=== PATIENT | female | born 1955 | race American Indian/Alaskan Native ===

== ENCOUNTER 2016-05-28 06:38 | Day surgery (SDC) | payer BC ==
[2016-05-28] MEDS ORDERED: SUBLIMAZE IV NR (08:52)
[2016-05-28] MEDS ORDERED: NACL 0.9% 1000 ML 1,000 ML IV SCH (09:00)
[2016-05-28] MEDS ORDERED: PEPCID PO NR (09:00)
[2016-05-28] MEDS ORDERED: NEURONTIN PO NR (09:00)
[2016-05-28] MEDS ORDERED: VERSED IV NR (09:00)
--- NOTE | 2016-05-28 09:01 | Anesthesia Day of Surgery ---
Anesthesia Day of Surgery - Day of Surgery Patient Examined: Yes Patient H&P Reviewed: Yes Patient is NPO: Yes Beta Blockers: Yes
--- NOTE | 2016-05-28 09:01 | Anesthesia Consultation ---
Anesthesia Consult and Med Hx Date of service: 05/28/16 - Airway Anesthetic Teeth Evaluation: Good ROM Head & Neck: Adequate Mental/Hyoid Distance: Adequate Mallampati Class: Class II Intubation Access Assessment: Probably Good - Pulmonary Exam CTA: Yes - Cardiac Exam Cardiac Exam: RRR - Pre-Operative Health Status ASA Pre-Surgery Classification: ASA3 Proposed Anesthetic Plan: General Nerve Block: PEC - Pulmonary Hx Smoking: No Hx Sleep Apnea: Yes - Cardiovascular System Hx Hypertension: Yes (FOR 9 YRS, DR. POTTER- PCP) - Central Nervous System Hx Psychiatric Problems: No - Endocrine Hx Insulin Dependent Diabetes: Yes - Other Systems Hx Cancer: Yes (ERICK. BREAST, DX: 04/2016) Hx Obesity: Yes (BMI>40)
[2016-05-28] MEDS ORDERED: DIPRIVAN 10 MG/ML IV ONE (09:38)
[2016-05-28] MEDS ORDERED: DECADRON ONE ×2 (09:39→13:17)
[2016-05-28] MEDS ORDERED: DILAUDID ONE (09:39)
[2016-05-28] MEDS ORDERED: MARCAINE-EPI/PF 0.5%-1:200,000 INFILTRATI ONE (09:39)
[2016-05-28] MEDS ORDERED: MARCAINE-EPI 0.5%-1:200,000 INFILTRATI ONE (09:40)
[2016-05-28] MEDS ORDERED: XYLOCAINE MPF 2% ONE (09:43)
[2016-05-28] MEDS ORDERED: NACL P/F VIAL (10 ML) ONE (10:00)
[2016-05-28] MEDS ORDERED: ZEMURON IV ONE (11:50)
[2016-05-28] MEDS ORDERED: SUBLIMAZE ONE (11:50)
[2016-05-28] MEDS ORDERED: QUELICIN ONE (11:50)
--- NOTE | 2016-05-28 12:44 | Short Stay Summary ---
Short Stay Documentation Date of service: 05/28/16 - History H&P: obtained from office - Allergies and Medications Current Medications: Allergies No Known Allergies Allergy (Unverified 09/12/13 08:47) Home Medications Medication Instructions Recorded Confirmed Last Taken Type Kesrf-T-Eblqcfcappmkb [Beano] 1 - 2 each PO BID PRN 05/20/16 05/20/16 05/27/16 History AtorvaSTATin [Lipitor] 20 mg PO QHS 05/20/16 05/20/16 05/27/16 History Colesevelam [Welchol] 1,875 mg PO BID 05/20/16 05/20/16 05/27/16 History Cyanocobalamin (Vitamin B-12) 1,000 mcg PO QDAY 05/20/16 05/20/16 05/27/16 History [B-12] Dapagliflozin Propanediol [Farxiga] 10 mg PO QDAY 05/20/16 05/20/16 05/27/16 History Furosemide [Lasix TAB] 40 mg PO QDAY 05/20/16 05/20/16 05/27/16 History Gabapentin [Neurontin] 100 mg PO BID 05/20/16 05/20/16 05/27/16 History Glimepiride [Amaryl] 4 mg PO BID 05/20/16 05/20/16 05/27/16 History Insulin Aspart [NovoLOG Flexpen] 8 units SQ TIDWM 05/20/16 05/20/16 05/27/16 History Insulin Glargine,Hum.rec.anlog 20 units SQ QAM 05/20/16 05/20/16 05/27/16 History [Toujeo Solostar] Insulin Glargine,Hum.rec.anlog 80 units SQ QHS 05/20/16 05/20/16 05/27/16 History [Toujeo Solostar] Lactase [Lactaid] 3,000 unit PO TIDWM 05/20/16 05/20/16 05/27/16 History Lactobacillus Combination No.8 1 each PO QDAY 05/20/16 05/20/16 05/27/16 History [Adult Probiotic] Liraglutide [Victoza 2-Chapincito] 18 units SQ QDAY 05/20/16 05/27/16 05/27/16 History Magnesium Oxide [Magnesium] 250 mg PO QDAY 05/20/16 05/20/16 05/27/16 History Metoprolol [Lopressor] 100 mg PO QDAY 05/20/16 05/20/16 05/28/16 04:45 History Multivit-Min/FA/Calcium/Vit K1 [Hm 1 each PO QDAY 05/20/16 05/20/16 05/27/16 History One Daily Women's 50+] Multivits Min/Iron/FA/Herb#186 1 each PO QDAY 05/20/16 05/20/16 05/27/16 History [Hair, Skin and Nails Caplet] Potassium Chloride [K-Dur] 10 meq PO QDAY 05/20/16 05/20/16 05/27/16 History Psyllium Husk [Metamucil] 1 tab PO QDAY 05/20/16 05/20/16 05/27/16 History Valsartan/Hydrochlorothiazide 1 each PO QDAY 05/20/16 05/20/16 05/28/16 04:45 History [Valsartan-Hctz 320-25 mg Tab] cloNIDine [Catapres] 0.1 mg PO QAM 05/20/16 05/20/16 05/28/16 04:45 History cloNIDine [Catapres] 0.2 mg PO QPM 05/20/16 05/20/16 05/27/16 History HYDROcodone/APAP 5-325 [Beverly 1 each PO Q6HR PRN #30 tablet 05/28/16 Unknown Rx 5/325] Active Medications Celecoxib (Celebrex) 200 mg PO PREOP NR Stop: 05/28/16 23:59 Last Admin: 05/28/16 09:04 Dose: 200 mg Famotidine (Pepcid) 20 mg PO PREOP NR Stop: 05/28/16 23:59 Last Admin: 05/28/16 09:04 Dose: 20 mg Fentanyl (Sublimaze) 100 mcg IV ONCE NR Stop: 05/28/16 23:59 Last Admin: 05/28/16 09:49 Dose: 100 mcg Gabapentin (Neurontin) 300 mg PO PREOP NR Stop: 05/28/16 23:59 Last Admin: 05/28/16 09:04 Dose: 300 mg Sodium Chloride (Nacl 0.9% 1000 Ml) 1,000 mls @ 100 mls/hr IV DIRECT SHEN Last Admin: 05/28/16 09:05 Dose: 100 mls/hr Midazolam HCl (Versed) 2 mg IV PREOP NR Stop: 05/28/16 23:59 Last Admin: 05/28/16 09:48 Dose: 2 mg - Brief post op/procedure progress note Date of procedure: 05/28/16 Pre-op diagnosis: Bilateral breast cancer Post-op diagnosis: same Procedure: Bilateral partial mastectomies with bilateral SLNBs Anesthesia: GETA Findings: Bilateral radiograph specimens with clip present within known breast cancer; bilateral SLNB performed Surgeon: EDDIE BELLA Estimated blood loss: minimal Pathology: list (bilateral partial mastectomies with bilateral SLNBs) Specimen disposition: to lab Condition: stable - Disposition Condition at discharge: Good Disposition: DISCHARGED TO HOME OR SELFCARE Short Stay Discharge Plan Activity: other (no heavy lifting) Diet: regular Wound: other (keep incisions clean and dry and may shower in 24 hours; no baths , pools or lakes; do not rub or scrub incision) Follow up with: RYANN POTTER MD [Primary Care Provider] - 7 Days EDDIE BELLA MD [Staff Physician] - 7 Days Prescriptions: HYDROcodone/APAP 5-325 [Beverly 5/325] 1 each PO Q6HR PRN #30 tablet PRN Reason: Pain
--- NOTE | 2016-05-28 12:47 | Operative Report ---
Operative Report Operative Report: Please see prior operative note
[2016-05-28] MEDS ORDERED: ANCEF ONE ×3 (12:55→16:49)
[2016-05-28] MEDS ORDERED: NACL 0.9% 1000 ML 1,000 ML ONE ×2 (13:18→15:55)
[2016-05-28] MEDS ORDERED: WATER FOR IRRIG STERILE IR ONE (14:26)
[2016-05-28] MEDS ORDERED: METHYLENE BLUE IV ONE (14:26)
--- NOTE | 2016-05-28 15:34 | Mammography Report ---
SPECIMEN RADIOGRAPH LEFT BREAST: 05/28/16 06:38:00 CLINICAL: Surgical excision of a mass with clip. FINDINGS: A biopsy clip and calcifications are identified within the specimen. IMPRESSION: Excision of the targeted lesion.
[2016-05-28] MEDS ORDERED: ZOFRAN ONE ×2 (17:26→21:16)
--- NOTE | 2016-05-28 18:51 | Operative Report ---
Operative Report Operative Report: Date of procedure: 05/28/2016 Pre-operative diagnosis: Bilateral breast cancer, left breast cancer of the upper inner quadrant and right breast cancer of the lower outer quadrant Post-operative diagnosis: Same Procedure name(s): Left partial mastectomy with sentinel lymph node biopsy and right partial mastectomy with sentinel lymph node biopsy Surgeon: Dia Romero M.D. Anesthesia: Gen. Findings: Radiograph specimens of both partial mastectomies with clip and breast cancermass present, sentinel lymph node biopsies performed bilaterally Complications: None Drains: None Disposition: PACU in good condition Indications for Operative Procedure: This is a 60-year-old postmenopausal -[place] lady with newly diagnosed bilateral breast cancer. Patient with known left breast cancer at the 11 o'clock position about 1-1.5 cm from nipple and right breast cancer around the 8:30 position about 8 cm from the nipple. Patient wanted to proceed with breast conservation. The above procedure was discussed with the patient in great detail and she wished to proceed. Procedure in Detail: Anesthesia placed bilateral pectoral muscle blocks prior to surgery. The patient was taken to the operating room and was laid supine. Gen. anesthesia was administered. Bilateral nipples were injected with radioisotope. No counts were noted in the right axilla and 1 cc of methylene dye was injected into the nipple. Bilateral breasts and axillas were prepped and draped in the normal sterile operative fashion. Timeout was performed. Known left breast cancer at the 11 o'clock position of the NAC was identified. Gamma probe was inserted into the axilla with sentinel lymph node identified. Skin incision was made in the axilla using a 15 blade knife with dissection taken down to the subcutaneous tissues. Axillary fascia was opened with the aid of Bovie cautery. Gamma probe was inserted into the axilla and sentinel lymph node of concern was identified. Lymph node was dissected free and sent to pathology. No additional counts were noted within the axilla. Axillary cavity was irrigated and suctioned. Axillary fashion was approximated with interrupted 3-0 Vicryl and the skin closed with a running 4-0 Monocryl and skin affix. Attention was then taken towards the left breast. A skin incision was made with the 15 blade knife taken down to the subcutaneous tissue. First began raising of the superior flap followed by the lateral flap, inferior flap and then medial flap. Specimen was then removed with the aid of the Bovie cautery. Patient wanted to proceed with nipple conservation and no additional tissue was noted adjacent to the nipple for excision. Hemostasis was obtained with the Bovie cautery. The subcutaneous tissues were approximated and closed with interrupted 3-0 Vicryl and skin was closed with a running 4 Monocryl and skin affix. Attention is then taken towards the right breast. Gamma probe was inserted into the axilla with counts identified. A skin incision was made in the axilla using a 15 blade knife with dissection taken down to subcutaneous tissue. Axillary fascia was opened with the aid of the Bovie cautery. Gamma probe was inserted into the axilla and sentinel lymph node of concern was identified. No blue dye was noted within the axilla. No additional counts were noted. Hemostasis was noted. Cavity was irrigated. Axillary fascia was approximated and closed using an interrupted 3-0 Vicryl followed by a running 4-0 Monocryl and skin affix to the skin. Attention was then taken towards the right breast partial mastectomy. Skin incision was made using a 15 blade knife with dissection taken down to the subcutaneous tissue. Began with raising of the superior flap followed by lateral flap, inferior flap and medial flap. Breast specimen was appropriately removed with the aid of Bovie cautery. Hemostasis was obtained. Cavity was irrigated. The subcutaneous tissues were approximated and closed with interrupted 3-0 Vicryl and skin closed with running 4-0 Monocryl and skin affix. The patient tolerated surgery very well and she was awakened from anesthesia without any complications and transferred to PACU in good condition.
[2016-05-28] MEDS ORDERED: NORCO 10/325 PO PRN (20:43)
[2016-05-28] MEDS ORDERED: NORCO 5/325 PO PRN (20:52)
[2016-05-28] MEDS ORDERED: ZOFRAN IV PRN (21:18)
[2016-05-28 22:11] VITALS: BP 145/72
--- NOTE | 2016-05-29 09:24 | Mammography Report ---
Specimen radiograph. A single specimen radiograph confirms the presence of a biopsy clip within the specimen. Several coarse calcifications are also noted.
== END 2016-05-28 22:11 | disposition home or self-care (01) ==
LOC: OR 06:38
PROVIDERS: ATTEND Surgery
DX: C50.212 Malignant neoplasm of upper-inner quadrant of left female breast (principal); C50.511 Malignant neoplasm of lower-outer quadrant of right female breast; I10 Essential (primary) hypertension; E11.22 Type 2 diabetes mellitus with diabetic chronic kidney disease; N18.2 Chronic kidney disease, stage 2 (mild); I12.9 Hypertensive chronic kidney disease with stage 1 through stage 4 chronic kidney disease, or unspecified chronic kidney disease; E78.5 Hyperlipidemia, unspecified; E78.00 Pure hypercholesterolemia, unspecified; E11.49 Type 2 diabetes mellitus with other diabetic neurological complication; G47.33 Obstructive sleep apnea (adult) (pediatric); E66.01 Morbid (severe) obesity due to excess calories; Z68.41 Body mass index [BMI] 40.0-44.9, adult; Z98.890 Other specified postprocedural states; Z82.49 Family history of ischemic heart disease and other diseases of the circulatory system
CPT/HCPCS: 19301; 38525; 64450; 76098; 78801; 82962; 88305; 88307; 88342; A9541; J0330; J0690; J1100; J1170; J2250; J2405; J2704; J3010; J7030; Q9968; J1815

== ENCOUNTER 2016-07-24 15:24 | Outpatient (CLI) | payer BC ==
--- NOTE | 2016-07-25 08:56 | Ultrasound Report ---
ULTRASOUND ASPIRATION RIGHT BREAST: 07/24/16 CLINICAL: Status post right partial mastectomy 05/28/16. She now presents with fever and pain in her right breast at the incision. FINDINGS: The procedure was explained to the patient and informed consent was obtained. Ultrasound demonstrated a septated fluid collection deep to the surgical scar at 9 o'clock 7 cm from the nipple. It measures approximately 6 x 4 x 5 cm. It is deep to thickened skin which measures 7 mm in thickness. 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 The skin was cleansed with Betadine and anesthetized with 1% lidocaine. A 20-gauge needle was introduced into into the fluid collection in the right breast with ultrasound guidance. Approximately 45cc of slightly cloudy omar fluidwas removed. The fluid was taken to the lab for Gram stain and culture. The patient tolerated the procedure well and there were no apparent complications. IMPRESSION: Uncomplicated ultrasound guided aspiration of a postop seroma in the right breast.
== END 2016-07-24 15:25 | disposition home or self-care (01) ==
LOC: SPVIMAG 15:24
PROVIDERS: ATTEND Surgery
DX: N64.4 Mastodynia (principal); N63 Unspecified lump in breast; N64.89 Other specified disorders of breast; Z85.3 Personal history of malignant neoplasm of breast; Z90.11 Acquired absence of right breast and nipple
CPT/HCPCS: 87116; 88112; 88305

== ENCOUNTER 2018-01-22 08:53 | Outpatient (CLI) | payer BC ==
--- NOTE | 2018-01-27 12:34 | Magnetic Resonance Report ---
BILATERAL BREAST MRI WITHOUT AND WITH CONTRAST: 01/22/18 08:53:00 CLINICAL: Breast cancer survivor status post bilateral partial mastectomy with radiation therapy. Status post right partial mastectomy 05/28/16 for invasive ductal carcinoma. 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 COMPARISON:03/25/16 breast MRI and 01/14/18 bilateral mammogram. TECHNIQUE: Axial 1.0-mm T1 without, axial high resolution 2.0-mm T2 and axial 1.0-mm dynamic Vibrant high-resolution postcontrast T1 fat saturation sequences on a 1.5 Karlie magnet. The examination was performed with an 8 channel dedicated [place] breast coil. Post processing with CAD and subtraction was performed on an [employer] workstation. 20 cc of Multihance was injected without incident for the contrast portion of the exam. Consent was obtained prior to the administration of the contrast. FINDINGS: Right: Minimal background parenchymal enhancement. The breast is mostly fatty with no new mass or suspicious enhancement. Several minimally enhancing stable benign circumscribed masses. Most of the masses contain relatively large calcifications. A right partial mastectomy has been performed since the last exam and there is a lateral benign postsurgical scar. The previously biopsied benign mass at 5:30 o'clock contains a biopsy clip and measures 2.2 x 1.4 cm. It demonstrates no enhancement and is located approximately 10 cm from the nipple. No suspicious right axillary or right internal mammary lymph nodes. Left: Minimal background parenchymal enhancement. Stable retroareolar benign scar with minimal enhancement. No suspicious mass or enhancement. Several stable benign masses with either a benign pattern of enhancement or minimal enhancement. The largest is in the upper inner quadrant 10 cm from the nipple and measures 1.9 x 1.3 x 1.3 cm. It demonstrates heterogeneous enhancement with mixed kinetics, 92% peak enhancement, 95% type I persistent, 5% type II plateau and 0% type III washout waveforms. No suspicious left axillary or left internal mammary lymph nodes. IMPRESSION: 1. Negative study with no suspicious mass or suspicious enhancement. 2. Multiple stable bilateral benign breast masses. 3. Bilateral benign postsurgical scar. 4. No suspicious lymph nodes. BI-RADS 2 - - Benign
== END 2018-01-22 08:54 | disposition home or self-care (01) ==
LOC: SPVIMAG 08:53
PROVIDERS: ATTEND Surgery
DX: N63.14 Unspecified lump in the right breast, lower inner quadrant (principal); N63.23 Unspecified lump in the left breast, lower outer quadrant; E78.00 Pure hypercholesterolemia, unspecified; I10 Essential (primary) hypertension; E66.9 Obesity, unspecified; E11.9 Type 2 diabetes mellitus without complications; Z85.3 Personal history of malignant neoplasm of breast
CPT/HCPCS: A9577; C8908; 77059

== ENCOUNTER 2019-10-05 10:39 | Outpatient (CLI) | payer BC ==
--- NOTE | 2019-10-06 11:11 | Magnetic Resonance Report ---
BILATERAL BREAST MR WITHOUT AND WITH GADOLINIUM INDICATION: Personal history of breast cancer. Status post bilateral partial mastectomy with radiati on therapy for invasive carcinoma. Previous biopsy of a right breast mass at 5:30 o'clock with pathol ogic diagnosis of pseudoangiomatous stromal hyperplasia (PASH). COMPARISONS: 01/22/2018 TECHNIQUE: Axial 1.0 mm T1 without, axial high-resolution 2.0 mm T2 and axial 1.0 mm dynamic vibrant high-resolution postcontrast T1 fat saturation sequences on a 1.5 Karlie magnet. The examination was p erformed with an 8-channel dedicated [place] breast coil. Post-processing with CAD and subtraction was performed on an [employer] workstation. 19.0 cc of MultiHance was injected without incident for the c ontrast portion of the exam. Consent was obtained prior to the administration of the contrast. FINDINGS: RIGHT BREAST: Minimal background parenchymal enhancement. Multiple circumscribed nonenhancing masses which are not significantly changed compared to the last exam. The largest is at 12:00 approximately 16 cm from the nipple and it measures 2.2 cm. Stable benign lateral surgical scar. No suspicious lymp h nodes. LEFT BREAST: Minimal background parenchymal enhancement. Stable central nonenhancing retroareolar sca r with nipple retraction. Multiple circumscribed nonenhancing masses which are not significantly ng ged compared to the last exam. The largest is in the upper inner quadrant approximately 15 cm from th e nipple 2.5 cm. No suspicious lymph nodes. IMPRESSION: 1. No suspicious findings. Recommend routine mammographic screening. 2. Bilateral benign postsurgical scar. 3. Numerous bilateral benign masses which all have similar morphology and demonstrate minimal enhance ment. BI-RADS Category 2: Benign A normal MRI does not exclude the presence of some forms of breast malignancy as literature reports s uggest that some forms of ductal carcinoma in situ or lobular carcinoma, particularly, may not be det ected on MRI. The sensitivity and specificity of MRI for cancers under 5 mm may be reduced. MRI does not replace the recommendation for annual conventional mammographic evaluation and should be used as an adjunct to mammography and physical examination as necessary. Signer Name: Paul Greco MD Signed: 10/06/2019 11:07 AM Workstation Name: [id number]
== END 2019-10-05 10:40 | disposition home or self-care (01) ==
LOC: SPVIMAG 10:39
PROVIDERS: ATTEND Surgery
DX: N63.41 Unspecified lump in right breast, subareolar (principal); N63.42 Unspecified lump in left breast, subareolar; Z85.3 Personal history of malignant neoplasm of breast
CPT/HCPCS: A9577; C8908; 77049

== ENCOUNTER 2021-01-24 11:15 | Outpatient (CLI) | payer MEDICAID, MEDICARE ==
--- NOTE | 2021-01-24 14:00 | Mammography Report ---
DIGITAL SCREENING MAMMOGRAM WITH CAD, 01/24/2021 CLINICAL INFORMATION / INDICATION: Routine screening mammography. SCREENING MAMMO TECHNIQUE: Digital bilateral 2D mammography was obtained in the craniocaudal and mediolateral obliqu e projections. This examination was interpreted with the benefit of Computer-Aided Detection analysis . COMPARISON: 01/23/2020 FINDINGS: Breast Density: The breasts are almost entirely fatty. No dominant mass, suspicious calcifications, or architectural distortion in either breast. Bilateral benign-appearing calcified nodules, solid nodules and changes of previous biopsy. IMPRESSION: No mammographic evidence of malignancy. Follow up recommendation: Routine yearly BI-RADS Category 2: Benign. A "normal" or negative report should not discourage follow up or biopsy of a clinically significant f inding. A written summary of these findings will be mailed to the patient. The patient will be entered into a mammography reporting system which will generate a reminder letter for the patient's next appointmen t at the appropriate interval. The [employer] recommends yearly mammograms starting at age 40 and continuing as l jeffery as a woman is in good health. Breast MRI is recommended for women with an approximate 20-25% or greater lifetime risk of breast cancer, including women with a strong family history of breast or ova mika cancer or who have been treated for Hodgkin's disease. Signer Name: Jake Zamora MD Signed: 01/24/2021 1:56 PM Workstation Name: [id number]
== END 2021-01-24 11:16 | disposition home or self-care (01) ==
LOC: SPVWC 11:15
PROVIDERS: ATTEND Surgery
DX: Z12.31 Encounter for screening mammogram for malignant neoplasm of breast (principal)
CPT/HCPCS: 77067